=== PATIENT | female | born 1980 | race Caucasian/White ===

== ENCOUNTER 2019-05-05 10:11 | Emergency (ER) | payer SELFPAY ==
[~2019-05-05] VITALS: Ht 152.4 cm; Wt 79.0 kg
[2019-05-05 10:12] VITALS: BP 139/92
--- NOTE | 2019-05-05 10:34 | NUR ---
39YO F C/O BILATERAL LOWER BACK PAIN X 4 DAYS. PT STATES 8/10 SHARP PAIN ON AREA. PT ALSO WITH DYSURIA AND HEMATURIA X 1 DAY. +N/V, +POSTPRANDIAL ABDOMINAL PAIN. DENIES FEVER, BOWEL PROBLEMS. VSS. ABDOMEN SOFT, NON-TENDER. PT WITH ACTIVE BOWEL SOUNDS. PT POSITIONED COMFORTABLY. SIDE RAILS UP. ERMD MADE AWARE OF PT STATUS. PMH: KIDNEY INFXN 13YRS AGO NO MEDS NKA
[2019-05-05] MEDS ORDERED: KETOROLAC 60 MG/2 ML VIAL IM ONE (11:15)
[2019-05-05 12:35] VITALS: BP 139/92
--- NOTE | 2019-05-05 12:35 | NUR ---
Patient discharged with v/s stable. Written and verbal after care instructions given and explained. Patient alert, oriented and verbalized understanding of instructions. Ambulatory with steady gait. All questions addressed prior to discharge. ID band removed. Patient advised to follow up with PMD. Rx of MOTRIN, ROBAXIN given. Patient educated on indication of medication including possible reaction and side effects. Opportunity to ask questions provided and answered.
== END 2019-05-05 12:35 | disposition home or self-care (01) ==
LOC: MED 10:11
DX: S39.012A Strain of muscle, fascia and tendon of lower back, initial encounter (principal); X58.XXXA Exposure to other specified factors, initial encounter; Y93.89 Activity, other specified; Y92.89 Other specified places as the place of occurrence of the external cause; Y99.8 Other external cause status
CPT/HCPCS: 96372; 99283; J1885